=== PATIENT | male | born 1960 | race Caucasian/White ===

== ENCOUNTER 2019-07-07 18:30 | Emergency (ER) | payer OTHER ==
[~2019-07-07] VITALS: Ht 172.7 cm; Wt 84.0 kg
[2019-07-07] MEDS ORDERED: OMNIPAQUE 350 MG/ML, 100ML BOTTLE ONE (19:40)
--- NOTE | 2019-07-07 19:41 | NUR ---
PT CAME IN CO OF HEADACHE FOR 2 MONTHS. CARE TOLD HIM "YOU EARS LOOK FINE". PT CAME INTO ED TODAY BECASUE PAIN IN HEAD WAS WORSE THAN ITS EVER BEEN. DENIES TRUAMA. FAMILY IS BEDSIDE.
[2019-07-07] MEDS ORDERED: OXYcodone/APAP 5/325MG TABLET ONE (19:45)
[2019-07-07] MEDS ORDERED: OXYcodone/APAP 5/325MG TABLET PO ONE (20:00)
[2019-07-07] MEDS ORDERED: ALBUTEROL (20:10)
[2019-07-07] MEDS ORDERED: SODIUM CHLORIDE FLUSH 10ML SYR IVF ONE ×2 (20:30)
[2019-07-07 20:52] LABS: BASOPHILS # (AUTO) 0.11 x10^3/uL (0-0.1); BASOPHILS % (AUTO) 2 % (0-1); EOSINOPHILS % (AUTO) 9 % (1-7); LYMPHOCYTES # (AUTO) 2.07 x10^3/uL (1-3.4); LYMPHOCYTES % (AUTO) 32 % (22-44); MD NO; MEAN CORPUSCULAR HEMOGLOBIN 30.2 pg (27.5-34.5); MEAN CORPUSCULAR HGB CONC 33.6 g/dL (33.2-36.2); MONOCYTES # (AUTO) 0.66 x10^3/uL (0.2-0.8); MONOCYTES % (AUTO) 10 % (2-9); NEUTROPHILS # (AUTO) 3.13 x10^3/uL (1.8-6.8); NEUTROPHILS % (AUTO) 48 % (42-75); PLATELET COUNT 365 x10^3/uL (130-400); RED BLOOD COUNT 4.01 x10^6/uL (4.38-5.82); RED CELL DISTRIBUTION WIDTH 14.1 % (9.4-14.8)
[2019-07-07 20:59] LABS: ANION GAP 4 mmol/L (5-15); CALCIUM 8.7 mg/dL (8.5-10.1); CHLORIDE 113 mmol/L (98-107); CREATININE 1.03 mg/dL (0.7-1.3)
[2019-07-07 21:00] LABS: ALBUMIN 3.5 g/dL (3.4-5.0)
--- NOTE | 2019-07-07 21:34 | NUR ---
PT REPORTS PAIN IMPROVEMENT FROM A 10 TO A 8. "ITS NOT SHARP. STILL HURTS THOUGH"
--- NOTE | 2019-07-07 22:11 | NUR ---
REPORT GIVEN TO KO WEBER
[2019-07-07] MEDS ORDERED: MORPHINE SULFATE 4 MG/ML, 1ML IVPush PRN (23:00)
[2019-07-07] MEDS ORDERED: MORPHINE SULFATE 4 MG/ML, 1ML ONE (23:24)
[2019-07-08] VITALS: BP 138/74
== END 2019-07-08 00:03 | disposition home or self-care (01) ==
LOC: ED 20:38
DX: R51 Headache (principal); K14.6 Glossodynia; Z85.810 Personal history of malignant neoplasm of tongue
CPT/HCPCS: 36415; 70491; 80048; 82040; 85025; 96374; 99284; J2270; Q9967

== ENCOUNTER 2019-08-11 08:03 | Outpatient (CLI) | payer OTHER ==
[~2019-08-11 08:03] MED LIST: ALBUTEROL
== END 2019-08-11 23:59 | disposition home or self-care (01) ==
LOC: ROC 08:03
PROVIDERS: ATTEND Radiology Radiation Oncology
DX: C01 Malignant neoplasm of base of tongue (principal)
CPT/HCPCS: 99214; G0463

== ENCOUNTER → 2019-08-24 | Outpatient (CLI) | payer OTHER | END | disposition home or self-care (01) | LOC: PETCFH 07:30 | PROVIDERS: ATTEND Radiology Radiation Oncology | DX: C02.9 Malignant neoplasm of tongue, unspecified (principal); J32.0 Chronic maxillary sinusitis | CPT/HCPCS: 78815; A9552 ==

== ENCOUNTER 2019-08-28 10:50 | Day surgery (SDC) | payer OTHER ==
[~2019-08-28] VITALS: Ht 170.2 cm; Wt 79.2 kg
[~2019-08-28 10:50] MED LIST changes: +SODIUM CHLORIDE 0.9% 1,000 ML IV SCH
[2019-08-28] MEDS ORDERED: SODIUM CHLORIDE 0.9% 1,000 ML IV SCH (11:11)
[2019-08-28 11:12] VITALS: BP 101/70
[2019-08-28] MEDS ORDERED: LIDOCAINE 1%, 20ML ONE (12:43)
[2019-08-28] MEDS ORDERED: LIDOCAINE GEL 2%, 5ML ONE (12:43)
[2019-08-28] MEDS ORDERED: FENTANYL PF 100 MCG/2ML ONE (13:14)
[2019-08-28] MEDS ORDERED: CEFAZOLIN PMX 1GM/50ML 50 ML ONE (13:15)
[2019-08-28] MEDS ORDERED: MIDAZOLAM 1 MG/ML, 5ML ONE (13:15)
[2019-08-28] MEDS ORDERED: NALOXONE 1 MG/ML, 2ML ONE (13:15)
[2019-08-28] MEDS ORDERED: FLUMAZENIL 0.1 MG/1 ML, 5ML ONE (13:15)
[2019-08-28] MEDS ORDERED: BENZOCAINE 20% SPRAY 0.5ML ONE ×2 (13:31→13:34)
[2019-08-28] MEDS ORDERED: LIDOCAINE 1%, 10ML ONE (13:54)
[2019-08-28] MEDS ORDERED: VISIPAQUE 270 MG/ML, 50ML BOTTLE ONE (14:59)
== END 2019-08-28 15:40 | disposition home or self-care (01) ==
LOC: OUT 10:50
PROVIDERS: ATTEND Radiology Radiation Oncology
DX: C01 Malignant neoplasm of base of tongue (principal); E11.9 Type 2 diabetes mellitus without complications; E78.5 Hyperlipidemia, unspecified; J45.909 Unspecified asthma, uncomplicated; Z79.84 Long term (current) use of oral hypoglycemic drugs; Z79.891 Long term (current) use of opiate analgesic; Z79.899 Other long term (current) drug therapy; Z87.891 Personal history of nicotine dependence; Z83.3 Family history of diabetes mellitus; Z82.49 Family history of ischemic heart disease and other diseases of the circulatory system; Z80.1 Family history of malignant neoplasm of trachea, bronchus and lung; Z82.3 Family history of stroke
CPT/HCPCS: 49440; 99156; 99157; C1725; C1729; C1751; C1769; J0690; J2250; J3010; Q9966; G0378; J2310

== ENCOUNTER → 2019-10-05 | Outpatient (CLI) | payer OTHER ==
[~2019-10-05] MED LIST changes: -SODIUM CHLORIDE 0.9% 1,000 ML IV SCH
== END | disposition home or self-care (01) ==
LOC: RAD 08:32
PROVIDERS: ATTEND Radiology Radiation Oncology
DX: C01 Malignant neoplasm of base of tongue (principal); R23.4 Changes in skin texture; R22.2 Localized swelling, mass and lump, trunk
CPT/HCPCS: 76705

== ENCOUNTER 2019-11-02 07:18 | Outpatient (CLI) | payer OTHER | END 2019-11-02 23:59 | disposition home or self-care (01) | LOC: ROC 07:18 | PROVIDERS: ATTEND Radiology Radiation Oncology | DX: C01 Malignant neoplasm of base of tongue (principal); E11.9 Type 2 diabetes mellitus without complications; E78.5 Hyperlipidemia, unspecified; J45.909 Unspecified asthma, uncomplicated; Z79.84 Long term (current) use of oral hypoglycemic drugs; Z87.891 Personal history of nicotine dependence; Z79.891 Long term (current) use of opiate analgesic; Z79.899 Other long term (current) drug therapy | CPT/HCPCS: 99212; G0463 ==

== ENCOUNTER 2019-11-09 07:19 | Outpatient (CLI) | payer OTHER | END 2019-11-09 23:59 | disposition home or self-care (01) | LOC: ROC 07:19 | PROVIDERS: ATTEND Radiology Radiation Oncology | DX: C01 Malignant neoplasm of base of tongue (principal); E78.5 Hyperlipidemia, unspecified; E11.9 Type 2 diabetes mellitus without complications; J45.909 Unspecified asthma, uncomplicated; Z79.01 Long term (current) use of anticoagulants; Z79.899 Other long term (current) drug therapy | CPT/HCPCS: 99212; G0463 ==

== ENCOUNTER 2019-11-23 07:11 | Outpatient (CLI) | payer OTHER | END 2019-11-23 23:59 | disposition home or self-care (01) | LOC: ROC 07:11 | PROVIDERS: ATTEND Radiology Radiation Oncology | DX: Z08 Encounter for follow-up examination after completed treatment for malignant neoplasm (principal); C01 Malignant neoplasm of base of tongue; E78.5 Hyperlipidemia, unspecified; E11.649 Type 2 diabetes mellitus with hypoglycemia without coma; Z79.01 Long term (current) use of anticoagulants; Z79.899 Other long term (current) drug therapy; J45.909 Unspecified asthma, uncomplicated; Z79.891 Long term (current) use of opiate analgesic; Z79.84 Long term (current) use of oral hypoglycemic drugs; Z87.891 Personal history of nicotine dependence | CPT/HCPCS: 99212; G0463 ==

== ENCOUNTER → 2019-12-14 | Outpatient (CLI) | payer OTHER | END | disposition home or self-care (01) | LOC: ROC 07:16 | PROVIDERS: ATTEND Radiology Radiation Oncology | DX: C01 Malignant neoplasm of base of tongue (principal) | CPT/HCPCS: 99213; G0463 ==

== ENCOUNTER → 2020-01-10 | Outpatient (CLI) | payer OTHER | END | disposition home or self-care (01) | LOC: PETCFH 07:28 | PROVIDERS: ATTEND Radiology Radiation Oncology | DX: C01 Malignant neoplasm of base of tongue (principal); K57.30 Diverticulosis of large intestine without perforation or abscess without bleeding | CPT/HCPCS: 78815; A9552 ==

== ENCOUNTER 2020-01-12 07:24 | Outpatient (CLI) | payer OTHER | END 2020-01-12 23:59 | disposition home or self-care (01) | LOC: ROC 07:24 | PROVIDERS: ATTEND Radiology Radiation Oncology | DX: C01 Malignant neoplasm of base of tongue (principal); E78.5 Hyperlipidemia, unspecified; E11.9 Type 2 diabetes mellitus without complications; J45.909 Unspecified asthma, uncomplicated; Z79.01 Long term (current) use of anticoagulants; Z79.891 Long term (current) use of opiate analgesic; Z79.84 Long term (current) use of oral hypoglycemic drugs; Z79.899 Other long term (current) drug therapy; Z87.891 Personal history of nicotine dependence | CPT/HCPCS: 99213; G0463 ==